=== PATIENT | male | born 1980 | race Hispanic/Latino ===

== ENCOUNTER → 2016-05-26 | Outpatient (CLI) | payer OTHER ==
--- NOTE | 2016-05-26 10:26 | REP ---
RIGHT SHOULDER: Three views. HISTORY: Right shoulder and neck pain. FINDINGS: Acromioclavicular and glenohumeral joints are normally aligned. There is moderate osteoarthritic spurring at the inferior aspect of the glenohumeral articulation. Study is otherwise unremarkable. IMPRESSION: Moderate osteoarthritic spurring at the inferior aspect of the glenohumeral articulation. Otherwise negative. Signed by Ken Bowser MD 05/26/2016 01:59 P
--- NOTE | 2016-05-26 10:34 | REP ---
Right elbow series: Four views. History: Pain. Findings: Four views of the right elbow demonstrate normal bones, joints and soft tissues. No fracture or subluxation is seen. No joint effusion is seen. Impression: Negative right elbow series. Signed by Ken Bowser MD 05/26/2016 01:59 P
--- NOTE | 2016-05-26 10:45 | REP ---
C-SPINE SERIES: Seven views. HISTORY: Neck pain. FINDINGS: Lateral views done in flexion/extension and neutral position show preserved vertebral body heights and normal alignment. No subluxation or instability is seen. The disc spaces are maintained. AP and open mouth odontoid views are unremarkable. Oblique images demonstrate intact neural foramina bilaterally at each cervical level and normally aligned facets. IMPRESSION: Negative cervical spine radiographs. Signed by Ken Bowser MD 05/26/2016 01:59 P
== END ==
LOC: M RAD 09:14
PROVIDERS: ATTEND Surgery
DX: M19.011 Primary osteoarthritis, right shoulder (principal); M54.2 Cervicalgia; M25.511 Pain in right shoulder

== ENCOUNTER → 2016-10-16 | Outpatient (CLI) | payer OTHER | LOC: M RAD 09:13 | PROVIDERS: ATTEND Surgery | DX: M25.511 Pain in right shoulder (principal); Z53.9 Procedure and treatment not carried out, unspecified reason ==